=== PATIENT | female | born 1990 | race Caucasian/White ===

== ENCOUNTER 2019-04-14 00:32 | Emergency (ER) | payer OTHER ==
[~2019-04-14] VITALS: Ht 167.6 cm; Wt 57.0 kg
[2019-04-14] MEDS ORDERED: ACETAMINOPHEN WITH CODEINE 300/30MG TABLET PO ONE (02:15)
[2019-04-14] MEDS ORDERED: BACITRACIN ZINC OINT UDPKT TOP ONE (02:30)
[2019-04-14 02:45] VITALS: BP 120/76
== END 2019-04-14 03:09 | disposition home or self-care (01) ==
LOC: ER 00:32
DX: S00.81XA Abrasion of other part of head, initial encounter (principal); R51 Headache; Z88.2 Allergy status to sulfonamides; V98.8XXA Other specified transport accidents, initial encounter; Y93.89 Activity, other specified; Y92.89 Other specified places as the place of occurrence of the external cause; Y99.8 Other external cause status
CPT/HCPCS: 99283